=== PATIENT | female | born 1945 | race Caucasian/White ===

== ENCOUNTER 2017-08-20 19:31 | Inpatient (IN) | payer MEDICARE, OTHER ==
[~2017-08-20] VITALS: Ht 153.7 cm; Wt 59.0 kg
[2017-08-20] MEDS ORDERED: SODIUM CHLORIDE 0.9% 1000ML 1,000 ML IV STA (22:29)
[2017-08-20] MEDS ORDERED: ONDANSETRON HCL INJ 2 MG/ML VIAL IV STA (22:29)
[2017-08-20] MEDS ORDERED: MORPHINE SULFATE INJ 4 MG/ML INJ IV STA (22:29)
[2017-08-20 23:21] LABS: BASOPHILS # (AUTO) 0.1 (0.0-0.1); BASOPHILS % 0.8 % (0.0-1.0); EOSINOPHILS # (AUTO) 0.1 (0.0-0.4); HEMATOCRIT 40.3 % (34.2-44.1); HEMOGLOBIN 13.6 g/dL (12.0-16.0); LYMPHOCYTES # (AUTO) 1.8 (1.0-3.2); LYMPHOCYTES % 17.7 % (18.0-39.1); MEAN CORPUSCULAR HEMOGLOBIN 30.6 pg (28-32); MEAN CORPUSCULAR HGB CONC 33.7 g/dL (31-35); MEAN CORPUSCULAR VOLUME 90.6 fL (81-99); MONOCYTES # (AUTO) 0.8 (0.2-0.8); MONOCYTES % 7.6 % (4.4-11.3); NEUTROPHILS # (AUTO) 7.2 (2.1-6.9); NEUTROPHILS % 72.4 % (38.7-80.0); PLATELET COUNT 264 x10e3/uL (140-360); RED BLOOD COUNT 4.45 x10e6/uL (3.6-5.1); RED CELL DISTRIBUTION WIDTH 12.2 % (11.7-14.4)
[2017-08-20 23:31] LABS: INR 1.03; PROTHROMBIN TIME 12.7 seconds (11.9-14.5)
[2017-08-20 23:32] LABS: PARTIAL THROMBOPLASTIN TIME 29.2 seconds (23.8-35.5)
[2017-08-20 23:41] LABS: ALANINE AMINOTRANSFERASE 14 IU/L (0-55); ALBUMIN/GLOBULIN RATIO 1.2 (0.8-2.0); ALKALINE PHOSPHATASE 66 IU/L (40-150); ANION GAP 13.8 mmol/L (8-16); BLOOD UREA NITROGEN 13 mg/dL (7-26); BUN/CREATININE RATIO 16 (6-25); CALCIUM 9.6 mg/dL (8.4-10.2); CARBON DIOXIDE 28 mmol/L (22-29); CHLORIDE 105 mmol/L (98-107); CREATINE KINASE 79 IU/L (29-168); CREATININE, SERUM 0.82 mg/dL (0.57-1.11); EST GLOMERULAR FILTRATION RATE > 60 ML/MIN (60-); GLUCOSE 112 mg/dL (74-118); POTASSIUM 3.8 mmol/L (3.5-5.1); SODIUM 143 mmol/L (136-145)
--- NOTE | 2017-08-21 00:49 | Diagnostic Imaging Report ---
HIP RIGHT 2-3 VW (+/- PELVIS) Comparison: None Clinical history: Hip pain status post fall Findings: Minimally displaced fracture of the right femoral neck in the subcapital region. Impression: Minimally displaced right femoral neck fracture. Signed by: Dr Mercedes Riggins MD on 08/21/2017 12:45 AM
--- NOTE | 2017-08-21 00:52 | Diagnostic Imaging Report ---
CHEST SINGLE (PORTABLE), 08/20/2017 10:29 PM Technique: CHEST SINGLE (PORTABLE) Comparison: None available. Clinical history: Status post fall, right hip fracture Findings: See Impression Impression: 1. Normal heart size. 2. Prominent ascending aortic contour which may be related to tortuosity or ectasia. Consider follow-up upright PA and lateral. 3. Hyperinflation. Mild bibasilar opacity could reflect atelectasis or scarring. 4. Asymmetric widening of the right AC joint, likely sequelae of prior injury. Signed by: Dr Mercedes Riggins MD on 08/21/2017 12:48 AM
[2017-08-21] MEDS ORDERED: MORPHINE SULFATE 2 MG/ML SYR IV PRN (01:00)
[2017-08-21] MEDS ORDERED: HYDROCODONE/APAP 5MG-325MG TAB PO ONE (01:15)
[2017-08-21] MEDS ORDERED: ONDANSETRON HCL INJ 2 MG/ML VIAL IV PRN ×2 (01:15→14:15)
[2017-08-21] MEDS ORDERED: HYDROMORPHONE 1MG/1ML INJ IV PRN (01:15)
[2017-08-21] MEDS: SODIUM CHLORIDE 0.9% 1000ML 1,000 ML IV SCH ×2 (02:20→11:08)
[2017-08-21 03:44] VITALS: BP 115/62
[2017-08-21 04:02] VITALS: BP 115/62
[2017-08-21 04:12] LABS: CLARITY,URINE CLEAR (CLEAR); COLOR,URINE YELLOW (YELLOW)
[2017-08-21 04:13] LABS: BILIRUBIN,URINE NEGATIVE (NEGATIVE); KETONES,URINE NEGATIVE (NEGATIVE); LEUKOCYTE ESTERASE ,URINE NEGATIVE (NEGATIVE); NITRITE,URINE NEGATIVE (NEGATIVE); PROTEIN,URINE DIPSTICK NEGATIVE (NEGATIVE); URINE UROBILINOGEN 0.2 mg/dL (0.2 - 1)
[2017-08-21 04:30] LABS: BACTERIA,URINE RARE /HPF; EPITHELIAL CELLS,URINE RARE /LPF; WBC,URINE (MAN) 0-5 /HPF (0-5)
[2017-08-21 06:03] LABS: BASOPHILS # (AUTO) 0.1 (0.0-0.1); BASOPHILS % 0.8 % (0.0-1.0); EOSINOPHILS # (AUTO) 0.1 (0.0-0.4); EOSINOPHILS % 0.7 % (0.0-6.0); HEMATOCRIT 37.7 % (34.2-44.1); HEMOGLOBIN 12.5 g/dL (12.0-16.0); LYMPHOCYTES # (AUTO) 1.1 (1.0-3.2); LYMPHOCYTES % 13.1 % (18.0-39.1); MEAN CORPUSCULAR HEMOGLOBIN 30.3 pg (28-32); MEAN CORPUSCULAR HGB CONC 33.2 g/dL (31-35); MEAN CORPUSCULAR VOLUME 91.3 fL (81-99); MONOCYTES # (AUTO) 0.5 (0.2-0.8); MONOCYTES % 6.3 % (4.4-11.3); NEUTROPHILS # (AUTO) 6.6 (2.1-6.9); NEUTROPHILS % 78.5 % (38.7-80.0); PLATELET COUNT 213 x10e3/uL (140-360); RED BLOOD COUNT 4.13 x10e6/uL (3.6-5.1); RED CELL DISTRIBUTION WIDTH 12.2 % (11.7-14.4)
[2017-08-21 06:34] LABS: ANION GAP 11.3 mmol/L (8-16); BLOOD UREA NITROGEN 14 mg/dL (7-26); BUN/CREATININE RATIO 19 (6-25); CALCIUM 8.9 mg/dL (8.4-10.2); CARBON DIOXIDE 28 mmol/L (22-29); CHLORIDE 107 mmol/L (98-107); CHOL/HDL RATIO 3.5 (3.0-3.6); CHOLESTEROL 159 MD/DL (0-199); CREATININE, SERUM 0.75 mg/dL (0.57-1.11); EST GLOMERULAR FILTRATION RATE > 60 ML/MIN (60-); GLUCOSE 124 mg/dL (74-118); HDL CHOLESTEROL 46 MG/DL (40-60); LDL CHOLESTEROL 101 MG/DL (60-130); MAGNESIUM 1.9 MG/DL (1.3-2.1); POTASSIUM 4.3 mmol/L (3.5-5.1); SODIUM 142 mmol/L (136-145); TRIGLYCERIDES 58 MG/DL (0-149)
[2017-08-21 06:50] LABS: B-TYPE NATRIURETIC PEPTIDE2 45.7 pg/mL (0-100)
[2017-08-21 06:55] LABS: THYROID STIMULATING HORMONE 7.526 uIU/mL (0.350-4.940)
[2017-08-21] MEDS ORDERED: ACETAMINOPHEN 325 MG TAB PO PRN (07:30)
[2017-08-21 07:52] VITALS: BP 116/56
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
[2017-08-21 08:28] LABS: FREE THYROXINE INDEX 1.9186 (1.4-3.8)
[2017-08-21] MEDS ORDERED: CEFAZOLIN SOD 1 GM in WATER STERILE 10ML VIAL 10 ML IV ONE (08:30)
[2017-08-21 11:45] VITALS: BP 119/65
[2017-08-21] MEDS ORDERED: HYDROCODONE/APAP 5MG-325MG TAB PO PRN (14:15)
[2017-08-21] MEDS ORDERED: PROMETHAZINE HCL (IM) 25 MG/ML VIAL IM PRN (14:15)
[2017-08-21] MEDS ORDERED: DOCUSATE SODIUM 100 MG CAP PO PRN (14:15)
[2017-08-21] MEDS ORDERED: DIPHENHYDRAMINE HCL INJ 50 MG/ML VIAL IM/IV PRN (14:15)
[2017-08-21] MEDS ORDERED: KETOROLAC TROMETHAMINE 30 MG/ML VIAL IV PRN (14:15)
[2017-08-21] MEDS ORDERED: ACETAMINOPHEN 650 MG SUPP PR PRN (14:15)
[2017-08-21] MEDS ORDERED: SODIUM CHLORIDE 0.9% 1000ML 1,000 ML IV SCH (14:15)
[2017-08-21] MEDS ORDERED: FENTANYL CITRATE/PF 100MCG/2 ML INJ ONE ×2 (14:36→17:55)
--- NOTE | 2017-08-21 14:47 | Operative Report ---
DATE OF PROCEDURE: August 21, 2017 CARDIAC TECHNOLOGIST: Miguel Soriano PA-C The patient was brought to the operating room for induction of anesthesia. Throughout this case, my PA's assistance was necessary for retraction of soft tissue and positioning of the extremity. This allows for efficient and technically successful execution of the operation and is considered medically necessary. PREOPERATIVE DIAGNOSIS: Right femoral neck fracture. POSTOPERATIVE DIAGNOSIS: Right femoral neck fracture. PROCEDURE: Closed reduction percutaneous pin fixation right femoral neck. INDICATIONS: The patient is a healthy and active 71-year-old lady who fell and sustained a nondisplaced right femoral neck fracture. The findings and options have been discussed. We plan on closed reduction and percutaneous screw fixation. The risks and benefits and postoperative course have been explained. She states she understands and wishes to proceed. DESCRIPTION OF PROCEDURE: The patient was brought to the operating room and placed under general anesthetic. She was positioned on the fracture table in gentle traction. Her right hip was prepped and draped in a sterile manner. A C-arm image intensifier was used to confirm anatomic alignment. A small incision was made over the lateral thigh. A 7.3 mm cannulated screw system was used. Guide pins were placed into the femoral head. These were over-drilled. Three separate 7.3 mm cannulated screws were placed in a diverging fashion. Final x-rays confirmed anatomic reduction and good positioning and length of the hardware. The wound was irrigated and closed with subcuticular Vicryl and Mastisol and Steri-Strips. Blood loss was less than 10 mL. At the end of the procedure all needle and sponge counts were correct. Job#: [id number] MANUEL
[2017-08-21] MEDS ORDERED: MORPHINE SULFATE 2 MG/ML SYR ONE ×2 (15:25→15:48)
[2017-08-21 16:04] VITALS: BP 115/58
[2017-08-21] MEDS ORDERED: LIDOCAINE HCL 2% LOCAL INJ 5 ML SDV VIAL INJ ONE (16:05)
[2017-08-21] MEDS ORDERED: DEXAMETHASONE SOD PHOS INJ 4 MG/ML VIAL ONE (16:05)
[2017-08-21] MEDS ORDERED: SEVOFLURANE INHAL SOLN 250 ML PEN BTL ONE (16:05)
[2017-08-21] MEDS ORDERED: PROPOFOL IV EMULSION 10 MG/ML 20 ML VIAL ONE (16:05)
[2017-08-21] MEDS ORDERED: ONDANSETRON HCL INJ 2 MG/ML VIAL ONE (16:05)
[2017-08-21] MEDS: CELECOXIB 100 MG CAP PO SCH (17:28)
[2017-08-21] MEDS: SENNOSIDES 8.6 MG TAB PO SCH (17:28)
[2017-08-21] MEDS: FAMOTIDINE 20 MG TAB PO SCH (17:28)
[2017-08-21] MEDS: ASPIRIN 325 MG TAB PO SCH (17:28)
[2017-08-21] MEDS ORDERED: MIDAZOLAM HCL 2 MG/2 ML VIAL ONE (17:55)
[2017-08-21] MEDS: HYDROCODONE/APAP 7.5MG-325MG 1 EA TAB PO PRN (18:05)
[2017-08-21] MEDS ORDERED: HYDRALAZINE HCL 20 MG/ML VIAL IV PRN (18:15)
[2017-08-21 20:00] VITALS: BP 118/56
[2017-08-21] MEDS ORDERED: ZOLPIDEM TARTRATE 5 MG TAB PO PRN (21:00)
[2017-08-21] MEDS: CEFAZOLIN SOD 1 GM VIAL IV SCH (21:06)
[2017-08-21] MEDS ORDERED: CEFAZOLIN SOD 1 GM/NS 50ML 50 ML IV SCH (22:00)
[2017-08-22] VITALS: BP 106/57
[2017-08-22] MEDS: HYDROCODONE/APAP 7.5MG-325MG 1 EA TAB PO PRN ×2 (00:36→05:58)
[2017-08-22 01:15] VITALS: BP 105/58
[2017-08-22 03:39] LABS: BASOPHILS % 0.3 % (0.0-1.0); HEMATOCRIT 35.8 % (34.2-44.1); HEMOGLOBIN 12.2 g/dL (12.0-16.0); LYMPHOCYTES # (AUTO) 0.9 (1.0-3.2); LYMPHOCYTES % 10.1 % (18.0-39.1); MEAN CORPUSCULAR HEMOGLOBIN 30.7 pg (28-32); MEAN CORPUSCULAR HGB CONC 34.1 g/dL (31-35); MEAN CORPUSCULAR VOLUME 89.9 fL (81-99); MONOCYTES # (AUTO) 0.5 (0.2-0.8); MONOCYTES % 5.1 % (4.4-11.3); NEUTROPHILS # (AUTO) 7.7 (2.1-6.9); NEUTROPHILS % 84.1 % (38.7-80.0); PLATELET COUNT 221 x10e3/uL (140-360); RED BLOOD COUNT 3.98 x10e6/uL (3.6-5.1); RED CELL DISTRIBUTION WIDTH 12.1 % (11.7-14.4)
[2017-08-22 03:55] LABS: ANION GAP 11.4 mmol/L (8-16); BLOOD UREA NITROGEN 13 mg/dL (7-26); BUN/CREATININE RATIO 16 (6-25); CALCIUM 8.6 mg/dL (8.4-10.2); CARBON DIOXIDE 26 mmol/L (22-29); CHLORIDE 104 mmol/L (98-107); CREATININE, SERUM 0.81 mg/dL (0.57-1.11); EST GLOMERULAR FILTRATION RATE > 60 ML/MIN (60-); GLUCOSE 134 mg/dL (74-118); MAGNESIUM 1.7 MG/DL (1.3-2.1); POTASSIUM 4.4 mmol/L (3.5-5.1); SODIUM 137 mmol/L (136-145)
[2017-08-22 04:00] VITALS: BP 107/58
[2017-08-22] MEDS: CEFAZOLIN SOD 1 GM VIAL IV SCH ×2 (05:00→13:08)
[2017-08-22 07:43] VITALS: BP 109/57
[2017-08-22] MEDS ORDERED: TYLENOL WITH C1 EACH PO (08:12)
[2017-08-22 08:15] VITALS: BP 109/57
[2017-08-22] MEDS ORDERED: ENOXAPARIN SOD INJ 40 MG/0.4 ML SYR SC SCH (09:00)
[2017-08-22] MEDS: FAMOTIDINE 20 MG TAB PO SCH (09:14)
[2017-08-22] MEDS: SENNOSIDES 8.6 MG TAB PO SCH (09:15)
[2017-08-22] MEDS: ASPIRIN 325 MG TAB PO SCH (09:15)
[2017-08-22] MEDS: CELECOXIB 100 MG CAP PO SCH (09:15)
[2017-08-22 12:07] VITALS: BP 128/56
[2017-08-22] MEDS ORDERED: ACETAMINOPHEN 1000 MG/100 ML IV PRN (14:15)
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
== END 2017-08-22 15:27 | disposition home or self-care (01) | DRG 482 ==
LOC: ER 19:31 → ERHOLD 08-21 01:38 → IMCU 08-21 02:55 → OBSVTOIN 08-21 17:26 → MED/SURG 08-22 01:18
PROVIDERS: ADMIT Internal Medicine; ATTEND Internal Medicine
PROC: 0QS634Z Reposition Right Upper Femur with Internal Fixation Device, Percutaneous Approach (ICD-10-PCS; principal; 2017-08-21 13:36)
DX: S72.011A Unspecified intracapsular fracture of right femur, initial encounter for closed fracture (principal); W01.0XXA Fall on same level from slipping, tripping and stumbling without subsequent striking against object, initial encounter; Y93.89 Activity, other specified; Y92.014 Private driveway to single-family (private) house as the place of occurrence of the external cause; E80.6 Other disorders of bilirubin metabolism; R00.1 Bradycardia, unspecified; R94.6 Abnormal results of thyroid function studies
CPT/HCPCS: 36415; 71045; 76000; 80048; 80053; 80061; 81001; 82550; 82553; 83036; 83735; 83880; 84436; 84443; 84479; 84484; 85025; 85610; 85730; 87086; 93005; 99284; J0690; J1100; J1170; J1650; J1885; J2001; J2250; J2270; J2405; J7030

== ENCOUNTER → 2017-09-12 | Outpatient (CLI) | payer MEDICARE ==
[~2017-09-12] MED LIST: TYLENOL WITH C1 EACH PO
--- NOTE | 2017-09-12 13:46 | Diagnostic Imaging Report ---
PROCEDURE: BONE DXA DUAL ENERGY COMPARISON:None. INDICATIONS:MENOPAUSAL AND PERIMENOPAUSAL DISORDER FINDINGS:Evaluation of the left hip and lumbar spine was performed utilizing DEXA Hologic bone densitometer. The study is technically adequate. The patient does not have any known previous non-traumatic fractures or other risk factors. Left hip total bone mineral density: 0.866 gm/cm2, T-score is -0.6, Z-score is 0.9. Lumbar spine total bone mineral density: 1.029 gm/cm2, T-score is -0.2, Z-score is a 1.9. Impression: 1. Bone mineral density of the left hip classified as osteopenia, fracture risk is increased. 2. Normal bone mineral density of the lumbar spine, fracture risk is not increased. 3. WHO Fracture Risk Assessment (FRAX): 10 year fracture risk of a major osteoporotic fracture is 8.8%. 10 year fracture risk of a hip fracture is 1.4%. The patient's fracture risk is compared to an age-matched control. Medical evaluation for secondary causes of low bone mineral density may be appropriate. Correlate clinically for the necessity and timing of the next bone mineral density study. National Osteoporosis Foundation recommendations: Initial therapy to reduce fracture risk in postmenopausal women with -BMD t-scores below -2.0 by central DXA with no risk factors -BMD t-scores below -1.5 by central CXA with one or more risk factors (first deg relative with hip fracture, prior personal fracture, low body weight, smoking) -A prior vertebral or hip fracture AACE n(Clinical Endocrinology) recommends treating the following: Postmenopausal women who have osteoporosis as diagnosed by fragility fractures or t-score -2.5 or below. Postmenopausal women who have risk factors (including hx of hip fracture, low body weight, smoking, risk of falling, high bone turnover, advancing age) and borderline low BMD T-scores of -1.5 or below Adequate intake of calcium (at least 1200mg/day) and vitamin D (400-800IU/day). Regular weight bearing and muscle-strengthening exercises Avoid smoking and excessive alcohol Victor M Longoria D.O. Dictated by: Victor M Longoria D.O. on 09/12/2017 at 13:51 Electronically approved by: Victor M Longoria D.O. on 09/12/2017 at 13:51
== END ==
LOC: DX 09:47
PROVIDERS: ATTEND Family Medicine
DX: Z12.31 Encounter for screening mammogram for malignant neoplasm of breast (principal); N95.9 Unspecified menopausal and perimenopausal disorder
CPT/HCPCS: 77067; 77080

== ENCOUNTER → 2017-10-16 | Outpatient (CLI) | payer MEDICARE ==
--- NOTE | 2017-10-16 16:11 | Diagnostic Imaging Report ---
#[id number] - [id number] #UNILATERAL RIGHT DIGITAL DIAGNOSTIC MAMMOGRAM WITH SPOT COMPRESSION: 10/16/2017 Comparison is made to exam dated: 09/12/2017 mammogram - [facility]. Current study contains 2 films. There are scattered fibroglandular elements in the right breast. There are benign calcifications in the right breast. No mass is seen within the area of interest. No significant masses, calcifications or other findings are seen in the breast. There has been no significant interval change. IMPRESSION: BENIGN There is no mammographic evidence of malignancy. A 1 year screening mammogram is recommended. The patient will be notified by letter of the results. Victor M Longoria Jr., D.O. cw/:10/16/2017 10:29:43 [place] Gilder: Gifty FLETCHER(Declan)(M), [facility] letter sent: Normal Exam Mammogram BI-RADS: 2 Benign
== END ==
LOC: MAMMO 09:15
PROVIDERS: ATTEND Family Medicine
DX: R92.8 Other abnormal and inconclusive findings on diagnostic imaging of breast (principal)

== ENCOUNTER → 2017-10-31 | Outpatient (RCR) | payer MEDICARE | LOC: PT 10-07 13:38 | PROVIDERS: ATTEND Specialist | DX: S72.044D Nondisplaced fracture of base of neck of right femur, subsequent encounter for closed fracture with routine healing (principal); Z47.89 Encounter for other orthopedic aftercare | CPT/HCPCS: 97110 ×4; 97161; G8978; G8979 ==

== ENCOUNTER 2017-11-14 08:55 | Outpatient (RCR) | payer MEDICARE | END 2017-11-30 | LOC: PT 08:55 | PROVIDERS: ATTEND Specialist | DX: Z47.89 Encounter for other orthopedic aftercare (principal); S72.044D Nondisplaced fracture of base of neck of right femur, subsequent encounter for closed fracture with routine healing; M62.81 Muscle weakness (generalized); R26.2 Difficulty in walking, not elsewhere classified | CPT/HCPCS: 97110 ×2; 97140; G8978; G8979 ×2; G8980 ==

== ENCOUNTER → 2018-01-30 | Outpatient (RCR) | payer MEDICARE | LOC: PT 01-27 12:58 | PROVIDERS: ATTEND Specialist | DX: M54.5 Low back pain (principal); M53.86 Other specified dorsopathies, lumbar region; M79.605 Pain in left leg; M62.81 Muscle weakness (generalized) | CPT/HCPCS: 97110 ×2; 97162; G8981; G8982 ==

== ENCOUNTER 2018-02-27 09:58 | Outpatient (RCR) | payer MEDICARE | END 2018-03-02 | LOC: PT 09:58 | PROVIDERS: ATTEND Specialist | DX: M54.5 Low back pain (principal); M53.87 Other specified dorsopathies, lumbosacral region; M62.81 Muscle weakness (generalized); M79.605 Pain in left leg | CPT/HCPCS: 97110 ×2; 97140 ×2; G8981; G8982 ==

== ENCOUNTER 2018-03-27 09:50 | Outpatient (RCR) | payer MEDICARE | END 2018-04-02 | LOC: PT 09:50 | PROVIDERS: ATTEND Specialist | DX: S72.044D Nondisplaced fracture of base of neck of right femur, subsequent encounter for closed fracture with routine healing (principal); M70.62 Trochanteric bursitis, left hip; M25.652 Stiffness of left hip, not elsewhere classified; M54.5 Low back pain; M79.605 Pain in left leg; M62.81 Muscle weakness (generalized) ==

== ENCOUNTER 2018-04-24 10:00 | Outpatient (RCR) | payer MEDICARE, OTHER | END 2018-04-30 | LOC: PT 10:00 | PROVIDERS: ATTEND Specialist | DX: S72.044D Nondisplaced fracture of base of neck of right femur, subsequent encounter for closed fracture with routine healing (principal); M70.62 Trochanteric bursitis, left hip; M79.605 Pain in left leg; M54.5 Low back pain; M62.81 Muscle weakness (generalized) ==

== ENCOUNTER → 2019-01-15 | Outpatient (CLI) | payer MEDICARE | LOC: MAMMO 09:44 | PROVIDERS: ATTEND Family Medicine | DX: Z12.31 Encounter for screening mammogram for malignant neoplasm of breast (principal) | CPT/HCPCS: 77067 ==

== ENCOUNTER → 2019-01-19 | Day surgery (SDC) | payer MEDICARE ==
[2019-01-15 10:28] LABS: BASOPHILS # (AUTO) 0.1 (0.0-0.1); EOSINOPHILS # (AUTO) 0.3 (0.0-0.4); EOSINOPHILS % 4.9 % (0.0-6.0); HEMATOCRIT 41.8 % (34.2-44.1); HEMOGLOBIN 13.9 g/dL (12.0-16.0); LYMPHOCYTES # (AUTO) 1.9 (1.0-3.2); LYMPHOCYTES % 33.5 % (18.0-39.1); MEAN CORPUSCULAR HEMOGLOBIN 30.5 pg (28-32); MEAN CORPUSCULAR HGB CONC 33.3 g/dL (31-35); MEAN CORPUSCULAR VOLUME 91.7 fL (81-99); MONOCYTES # (AUTO) 0.5 (0.2-0.8); MONOCYTES % 8.1 % (4.4-11.3); NEUTROPHILS # (AUTO) 2.8 (2.1-6.9); NEUTROPHILS % 51.1 % (38.7-80.0); PLATELET COUNT 246 x10e3/uL (140-360); RED BLOOD COUNT 4.56 x10e6/uL (3.6-5.1); RED CELL DISTRIBUTION WIDTH 12.4 % (11.7-14.4)
[~2019-01-19] MED LIST changes: +FENTANYL CITRATE/PF 100MCG/2 ML INJ ONE; +GLUCAGON FOR INJ 1 MG VIAL ONE; +MIDAZOLAM HCL 2 MG/2 ML VIAL ONE; +PROPOFOL IV EMULSION 10 MG/ML 50 ML VIAL ONE
[2019-01-19 11:36] VITALS: BP 105/66
== END | disposition home or self-care (01) ==
LOC: OR 07:48
PROVIDERS: ATTEND Internal Medicine Gastroenterology
DX: Z12.11 Encounter for screening for malignant neoplasm of colon (principal); D12.4 Benign neoplasm of descending colon; K57.30 Diverticulosis of large intestine without perforation or abscess without bleeding; K64.8 Other hemorrhoids; Z01.810 Encounter for preprocedural cardiovascular examination; Z01.812 Encounter for preprocedural laboratory examination
CPT/HCPCS: 36415; 45384; 85025; 88305; 93005; J1610; J2250; J2704; J3010; 45378

== ENCOUNTER → 2020-01-18 | Outpatient (CLI) | payer MEDICARE ==
[~2020-01-18] MED LIST changes: -FENTANYL CITRATE/PF 100MCG/2 ML INJ ONE; -GLUCAGON FOR INJ 1 MG VIAL ONE; -MIDAZOLAM HCL 2 MG/2 ML VIAL ONE; -PROPOFOL IV EMULSION 10 MG/ML 50 ML VIAL ONE
== END ==
LOC: MAMMO 12:24
PROVIDERS: ATTEND Family Medicine
DX: Z12.31 Encounter for screening mammogram for malignant neoplasm of breast (principal)
CPT/HCPCS: 77067

== ENCOUNTER → 2021-01-17 | Outpatient (CLI) | payer MEDICARE | LOC: MAMMO 11:39 | PROVIDERS: ATTEND Family Medicine | DX: Z12.31 Encounter for screening mammogram for malignant neoplasm of breast (principal) | CPT/HCPCS: 77067 ==

== ENCOUNTER → 2022-01-18 | Outpatient (CLI) | payer MEDICARE | LOC: MAMMO 11:38 | PROVIDERS: ATTEND Family Medicine | DX: Z12.31 Encounter for screening mammogram for malignant neoplasm of breast (principal) | CPT/HCPCS: 77067 ==

== ENCOUNTER → 2023-01-29 | Outpatient (REF) | payer MEDICARE | LOC: MAMMO 08:40 | PROVIDERS: ATTEND Family Medicine | DX: Z12.31 Encounter for screening mammogram for malignant neoplasm of breast (principal) | CPT/HCPCS: 77067 ==

== ENCOUNTER → 2023-07-14 | Outpatient (REF) | payer MEDICARE | LOC: DX 08:42 | PROVIDERS: ATTEND Family Medicine | DX: M85.88 Other specified disorders of bone density and structure, other site (principal) | CPT/HCPCS: 77080 ==

== ENCOUNTER → 2023-09-03 | Outpatient (REF) | payer MEDICARE | LOC: CT 14:54 | PROVIDERS: ATTEND Physician Assistant | DX: S92.012A Displaced fracture of body of left calcaneus, initial encounter for closed fracture (principal) ==

== ENCOUNTER → 2024-02-10 | Outpatient (REF) | payer MEDICARE | LOC: MAMMO 08:29 | PROVIDERS: ATTEND Family Medicine | DX: Z12.31 Encounter for screening mammogram for malignant neoplasm of breast (principal) | CPT/HCPCS: 77067 ==